=== PATIENT | male | born 1985 | race Caucasian/White ===

== ENCOUNTER 2016-08-06 18:29 | Inpatient (IN) | payer MEDICARE, MEDICAID ==
[~2016-08-06] VITALS: Ht 177.8 cm; Wt 80.7 kg
[2016-08-06] MEDS ORDERED: ALU/MAG/SIM 30 ML UDC PO PRN (20:45)
[2016-08-06] MEDS ORDERED: TRAZODONE 50 MG TAB PO PRN (20:45)
[2016-08-06] MEDS ORDERED: MAG HYDROX 30 ML UDC PO PRN (20:45)
[2016-08-06] MEDS ORDERED: LORAZEPAM 2 MG/ML VIAL IM PRN (20:45)
[2016-08-06] MEDS ORDERED: HALOPERIDOL 5 MG/ML VIAL IM PRN (20:45)
[2016-08-06] MEDS ORDERED: LORAZEPAM 2 MG TAB PO PRN (20:45)
[2016-08-06] MEDS ORDERED: DIPHENHYDRAMINE 50 MG CAP PO PRN (20:45)
[2016-08-06] MEDS ORDERED: DIPHENHYDRAMINE 50 MG/ML VIAL IM PRN (20:45)
[2016-08-06] MEDS ORDERED: HALOPERIDOL 5 MG TAB PO PRN (20:45)
[2016-08-06 21:29] VITALS: BP_SYST 117; RESP 20; TEMP 97.7
[2016-08-06 21:30] VITALS: Ht 177.8 cm; Wt 80.7 kg
[2016-08-06] MEDS: lamoTRIgine 100 MG TAB PO SCH (22:28)
[2016-08-06] MEDS: CARBAMAZEPINE XR 100 MG TAB PO SCH (22:28)
[2016-08-06] MEDS: clonazePAM 0.5 MG TAB PO SCH (22:30)
[2016-08-07 07:14] VITALS: BP_SYST 111; RESP 18; TEMP 97.9
[2016-08-07] MEDS: CARBAMAZEPINE XR 100 MG TAB PO SCH ×3 (08:42→20:33)
[2016-08-07] MEDS: VORTIOXETINE 5 MG PO SCH (08:42)
[2016-08-07] MEDS: MULTIVITS/MINERALS (THERAGRAN M) TAB PO SCH (08:42)
[2016-08-07] MEDS ORDERED: TRAZODONE 100 MG TAB PO PRN (08:55)
[2016-08-07] MEDS: ACETAMINOPHEN 325 MG TAB PO PRN (11:26)
[2016-08-07 18:59] VITALS: BP_SYST 134; RESP 18; TEMP 98.6
[2016-08-07 19:02] VITALS: BP_SYST 134; RESP 18; TEMP 98.6
[2016-08-07] MEDS: lamoTRIgine 100 MG TAB PO SCH (20:33)
[2016-08-07] MEDS: clonazePAM 0.5 MG TAB PO SCH (20:33)
[2016-08-07] MEDS ORDERED: QUEtiapine 25 MG TAB PO SCH (21:00)
[2016-08-07] MEDS: TRAZODONE 50 MG TAB PO PRN (21:12)
[2016-08-08] MEDS: MULTIVITS/MINERALS (THERAGRAN M) TAB PO SCH (07:21)
[2016-08-08] MEDS ORDERED: MISSING DOSE XX ONE ×2 (07:25→11:40)
[2016-08-08 07:44] VITALS: BP_SYST 117; RESP 18; TEMP 97.6
[2016-08-08] MEDS: VORTIOXETINE 5 MG PO SCH (08:51)
[2016-08-08] MEDS: CARBAMAZEPINE XR 100 MG TAB PO SCH ×3 (08:51→21:32)
[2016-08-08] MEDS ORDERED: VORTIOXETINE 5 MG PO ONE (09:30)
[2016-08-08] MEDS: ONDANSETRON 4 MG TAB PO PRN (11:36)
[2016-08-08] MEDS: ACETAMINOPHEN 325 MG TAB PO PRN (16:07)
[2016-08-08 19:00] VITALS: BP_SYST 120; RESP 18; TEMP 97.6
[2016-08-08] MEDS: clonazePAM 0.5 MG TAB PO SCH (21:32)
[2016-08-08] MEDS: lamoTRIgine 100 MG TAB PO SCH (21:32)
[2016-08-08] MEDS: TRAZODONE 50 MG TAB PO PRN (21:33)
[2016-08-09] MEDS: VORTIOXETINE 5 MG PO SCH (08:18)
[2016-08-09] MEDS: MULTIVITS/MINERALS (THERAGRAN M) TAB PO SCH (08:18)
[2016-08-09] MEDS: CARBAMAZEPINE XR 100 MG TAB PO SCH ×3 (08:18→20:53)
[2016-08-09 08:43] VITALS: BP_SYST 117; RESP 20; TEMP 97.7
[2016-08-09] MEDS: Ziprasidone 20 MG CAP PO SCH ×2 (10:45→20:56)
[2016-08-09] MEDS ORDERED: MISSING DOSE XX ONE (13:10)
[2016-08-09] MEDS: ONDANSETRON 4 MG TAB PO PRN (13:22)
[2016-08-09 19:01] VITALS: BP_SYST 127; RESP 18; TEMP 97.8
[2016-08-09] MEDS: lamoTRIgine 100 MG TAB PO SCH (20:53)
[2016-08-09] MEDS: clonazePAM 0.5 MG TAB PO SCH (21:00)
[2016-08-10 07:38] VITALS: BP_SYST 126; RESP 18; TEMP 97.5
[2016-08-10] MEDS: Ziprasidone 20 MG CAP PO SCH ×2 (08:32→20:49)
[2016-08-10] MEDS: CARBAMAZEPINE XR 100 MG TAB PO SCH ×3 (08:32→20:51)
[2016-08-10] MEDS: VORTIOXETINE 5 MG PO SCH (08:32)
[2016-08-10] MEDS: MULTIVITS/MINERALS (THERAGRAN M) TAB PO SCH (08:32)
[2016-08-10 19:08] VITALS: BP_SYST 141; RESP 18; TEMP 97.6
[2016-08-10] MEDS: clonazePAM 0.5 MG TAB PO SCH (20:49)
[2016-08-10] MEDS: lamoTRIgine 100 MG TAB PO SCH (20:50)
[2016-08-11] MEDS: ONDANSETRON 4 MG TAB PO PRN (03:47)
[2016-08-11 04:25] VITALS: BP_SYST 130; RESP 20; TEMP 97.6
[2016-08-11 09:05] VITALS: BP_SYST 129; RESP 18; TEMP 97.3
[2016-08-11] MEDS ORDERED: ONDANSETRON 4 MG VIAL IM ONE (09:15)
[2016-08-11 09:50] VITALS: BP_SYST 129; RESP 18; TEMP 97.3
[2016-08-11] MEDS: VORTIOXETINE 5 MG PO SCH (10:15)
[2016-08-11] MEDS: MULTIVITS/MINERALS (THERAGRAN M) TAB PO SCH (10:15)
[2016-08-11] MEDS: Ziprasidone 20 MG CAP PO SCH (10:15)
[2016-08-11] MEDS: CARBAMAZEPINE XR 100 MG TAB PO SCH (10:15)
== END 2016-08-11 12:33 | disposition home or self-care (01) | DRG 885 ==
LOC: ENRESERVTM → ENRESERVDT → ER 18:29 → EMR 20:20 → PSY 21:16
PROVIDERS: ADMIT Psychiatry & Neurology Psychiatry; ATTEND Psychiatry & Neurology Psychiatry
DX: F25.9 Schizoaffective disorder, unspecified (principal); G40.909 Epilepsy, unspecified, not intractable, without status epilepticus; F84.0 Autistic disorder
CPT/HCPCS: 36415; 80053; 80156; 80165; 80307; 80320; 80329; 81003; 82947; 84439; 84443; 85025; 85610